=== PATIENT | female | born 1945 | race Caucasian/White ===

== ENCOUNTER 2017-02-02 12:08 | Emergency (ER) | payer MEDICARE, OTHER, MEDICAID ==
[~2017-02-02 12:08] MED LIST: ACTOS30 MG; ASPIRIN EC81 MG PO; BENZONATATE200 M1 PO; BIOFREEZE118 M1 TP; CALCIUM; CALCIUM + D T1 UDTAB PO; CORTISONE14 GM TP; DEPAKOTE ER PO; DEPAKOTE ER500 M1 PO; DEPAKOTE500 M1 PO; DEPAKOTE500 MG PO; DITROPAN XL5 M3 PO; DIVALPROEX SOD250 M1 PO; DOCU SOFT PO; DOCUSATE SODIU100 M; EPIPEN 2-P0.3 MG/0.3 SC; GLUCAGEN1 MG/1 ML IM; GLUCOPHAGE1000 MG PO; GLUCOPHAGE500 M3 PO; HUMULIN 70/30 V10 ML SQ; HUMULIN 70100 UNIT/2 SC; HYDROCORTISONE TP; IMIPRAMINE HCL PO; IMIPRAMINE HCL10 MG PO; LOPROX CREAM TP; LOTRIMIN AF12 GM TOP; MUPIROCIN22 G2 TP; NORVASC5 M2 PO; NOVOLIN 70100 UNITS/ SC; NYSTOP60 GM EXT; OMEPRAZOLE20 M3 PO; QC CALCIUM 6001 EACH PO; QUESTRAN PACKET4 G1 PO; ROXICODONE5 M2 PO; SINGULAIR10 M1 PO; SINGULAR PO; TINACTIN30 GM TP; TYLENOL ARTHRI650 M1 PO; TYLENOL325 M2 PO; TYLENOL325 MG PO; ZYRTEC10 M7 PO; [UNRECOGNIZED DRUG - OTHER]; [UNRECOGNIZED DRUG - OTHER] PO; [UNRECOGNIZED DRUG - OTHER] TP; [UNRECOGNIZED DRUG - REMARK]
[2017-02-02] MEDS ORDERED: OMEPRAZOLE20 M3 PO (12:48)
[2017-02-02] MEDS ORDERED: PREDNISONE20 M1 PO (12:49)
[2017-02-02] MEDS ORDERED: ACARBOSE PO (12:52)
[2017-02-02] MEDS ORDERED: IMIPRAMINE HCL50 M2 PO (12:56)
[2017-02-02] MEDS ORDERED: VITAMIN C500 M3 PO (13:00)
[2017-02-02] MEDS ORDERED: LOPROX TP (13:02)
[2017-02-02] MEDS ORDERED: CORTIZONE-1028 G2 TP (13:04)
[2017-02-02 13:14] LABS: BASO % 0.5 % (0-2); EOS % 2.3 % (0-7); EOSINOPHIL ABSOLUTE COUNT 0.2 tho/cmm (0.0-0.7); HCT-HEMATOCRIT 34.6 % (34.0-49.0); HGB-HEMOGLOBIN 11.3 gm/dl (12.0-15.5); IMMATURE GRANULOCYTES ABSOLUTE 0.02 tho/cmm (0-0.03); IMMATURE GRANULOCYTES PERCENT 0.2 % (0-0.3); LYMPH % 30.3 % (20-45); LYMPH ABSOLUTE COUNT 2.5 tho/cmm (0.8-4.5); MCH (MEAN CORPUSCULAR HGB) 27.7 pg (28.0-32.0); MCHC MEAN CORPUSCULAR HGB CONC 32.7 % (32.0-36.0); MCV (MEAN CELL VOLUME) 84.8 fl (82.0-96.0); MONOCYTE ABSOLUTE COUNT 0.8 tho/cmm (0.0-1.2); NEUTROPHIL ABSOLUTE COUNT 4.8 tho/cmm (1.6-8.0); NEUTROPHIL-AUTOMATED 4.8 tho/cmm (1.6-8.0); NEUTROPHILS % 57.7 % (40-80); PLATELET COUNT 248 tho/cmm (150-450); RED BLOOD COUNT 4.08 mil/cmm (4.00-5.20); RED CELL DISTRIBUTION WIDTH 14.4 % (12.4-16.4); WHITE BLOOD COUNT 8.3 tho/cmm (4.0-10.0)
[2017-02-02 13:29] LABS: ANION GAP 14 mmol/L (0-20); BLOOD UREA NITROGEN 11 mg/dl (6-24); CALCIUM 8.4 mg/dl (8.5-10.5); CARBON DIOXIDE-VENOUS 25 mmol/L (22-32); CHLORIDE 97 mmol/l (96-110); CREATININE 0.62 mg/dl (0.50-1.10); GLUCOSE 183 mg/dL (70-110); POTASSIUM 4.7 mmol/L (3.7-5.1); SODIUM 131 mmol/L (135-145); eGFR VALUE FOR BLACK >90 mL/Min
[2017-02-02 13:33] LABS: C-REACTIVE PROTEIN <0.3 mg/dl (0-0.9)
[2017-02-02 15:04] LABS: URINE APPEARANCE CLEAR; URINE BILIRUBIN NEGATIVE (NEG); URINE BLOOD NEGATIVE (NEG); URINE COLOR YELLOW; URINE GLUCOSE (UA) SMALL (NEG); URINE KETONE MODERATE (NEG); URINE LEUKOCYTE ESTERASE NEGATIVE (NEG); URINE NITRITE NEGATIVE (NEG); URINE PROTEIN NEGATIVE (NEG); URINE SPECIFIC GRAVITY 1.015 (1.003-1.030)
[2017-02-02] MEDS ORDERED: VIBRAMYCIN100 M1 PO (17:31)
[2017-03-10] MEDS ORDERED: ACARBOSE PO (09:24)
[2017-03-10] MEDS ORDERED: ZYRTEC10 M7 PO (09:24)
[2017-03-10] MEDS ORDERED: ASPIRIN EC81 MG PO (09:24)
[2017-03-10] MEDS ORDERED: CALCIUM 600 +1 EAC6 PO (09:24)
[2017-03-10] MEDS ORDERED: DEPAKOTE ER250 M1 PO (09:25)
[2017-03-10] MEDS ORDERED: TOFRANIL PO ×2 (09:25→09:26)
[2017-03-10] MEDS ORDERED: DEPAKOTE ER500 M1 PO (09:25)
[2017-03-10] MEDS ORDERED: CHOLESTYRAMINE P4 GM PO (09:25)
[2017-03-10] MEDS ORDERED: SINGULAIR10 M1 PO (09:26)
[2017-03-10] MEDS ORDERED: OMEPRAZOLE20 M3 PO (09:26)
[2017-03-10] MEDS ORDERED: ACETAMINOPHEN650 M4 PO (09:27)
[2017-03-10] MEDS ORDERED: VITAMIN C500 M3 PO (09:27)
[2017-03-10] MEDS ORDERED: OXYBUTYNIN CHLOR5 M3 PO (09:27)
[2017-03-10] MEDS ORDERED: AMOXICILLIN500 M1 PO (09:28)
[2017-03-10] MEDS ORDERED: CICLOPIROX TP (09:28)
[2017-03-10] MEDS ORDERED: EPIPEN 2-P0.3 MG/0.3 IM (09:29)
[2017-03-10] MEDS ORDERED: CORTIZONE-1028 G2 TP (09:30)
[2017-03-10] MEDS ORDERED: MUPIROCIN22 G2 TP (09:31)
[2017-03-10] MEDS ORDERED: PEPTO-BISM262 MG/11 PO (09:31)
[2017-03-10] MEDS ORDERED: BIO-FREEZE TP (09:32)
[2017-03-10] MEDS ORDERED: DELTASONE20 MG PO (09:32)
[2017-03-11] MEDS ORDERED: SINGULAIR10 M1 PO (09:24)
[2017-03-11] MEDS ORDERED: PEPCID20 M1 PO (09:25)
[2017-03-11] MEDS ORDERED: ASPIRIN81 M1 PO (09:27)
== END 2017-02-02 17:54 ==
LOC: EDMED 12:08
PROVIDERS: Nurse Practitioner Family
DX: E87.2 Acidosis (principal); R21 Rash and other nonspecific skin eruption; L29.9 Pruritus, unspecified; E11.9 Type 2 diabetes mellitus without complications; G40.909 Epilepsy, unspecified, not intractable, without status epilepticus; Z79.4 Long term (current) use of insulin; Z79.82 Long term (current) use of aspirin; Z79.899 Other long term (current) drug therapy
CPT/HCPCS: J7030